=== PATIENT | male | born 1975 | race Caucasian/White ===

== ENCOUNTER 2017-12-27 11:02 | Outpatient (CLI) | payer OTHER | END 2017-12-27 11:12 | disposition home or self-care (01) | LOC: NUCLEAR 11:02 | DX: I73.89 Other specified peripheral vascular diseases (principal); I87.2 Venous insufficiency (chronic) (peripheral) ==

== ENCOUNTER 2018-01-01 13:15 | Outpatient (CLI) | payer OTHER | END 2018-01-01 13:33 | disposition home or self-care (01) | LOC: NUCLEAR 13:15 | DX: I73.89 Other specified peripheral vascular diseases (principal) ==

== ENCOUNTER → 2018-12-22 10:02 | Outpatient (CLI) | payer OTHER | END | disposition home or self-care (01) | LOC: LAB 10:02 | DX: E03.8 Other specified hypothyroidism (principal); D51.0 Vitamin B12 deficiency anemia due to intrinsic factor deficiency; D51.1 Vitamin B12 deficiency anemia due to selective vitamin B12 malabsorption with proteinuria; I10 Essential (primary) hypertension; D50.8 Other iron deficiency anemias; I80.222 Phlebitis and thrombophlebitis of left popliteal vein; I73.89 Other specified peripheral vascular diseases ==

== ENCOUNTER 2023-05-30 17:37 | Inpatient (IN) | payer OTHER ==
[~2023-05-30] VITALS: Ht 185.4 cm; Wt 81.6 kg
[2023-05-30] MEDS ORDERED: PLAVIX75 MG (17:42)
[2023-05-30 20:10] LABS: HEMATOCRIT 39.4 % (39.0-48.0); HEMOGLOBIN 13.5 g/dL (13-16.00); MEAN CELL VOLUME 88.3 fL (80.0-100.00); MEAN CORPUSCULAR HEMOGLOBIN 30.2 pg (27.00-32.0); MEAN CORPUSCULAR HGB CONC 34.2 g/dl (32.0-36.0); PLATELET COUNT 175 K/uL (150-450); RED BLOOD COUNT 4.47 M/uL (4.00-6.00); RED CELL DISTRIBUTION WIDTH 14.1 % (11.5-14.5)
[2023-05-30 20:22] LABS: INR 1.11; PARTIAL THROMBOPLASTIN TIME 25.9 SECONDS (22.0-34.0); PROTHROMBIN TIME 11.6 SECONDS (9.0-11.5)
[2023-05-30 20:27] LABS: ALBUMIN 3.1 gm/dL (3.4-5.0); BILIRUBIN TOTAL 0.76 mg/dL (0.3-1.2); BILIRUBIN,CONJUGATED 0.22 mg/dL (0.0-0.2); BILIRUBIN,UNCONJUGATED 0.54 mg/dL (0.0-0.6); CREATININE SERUM 1.03 mg/dL (0.70-1.30); GFR 77.08; GLOBULINA 3.8 G/DL (2.4-3.5); POTASSIUM 4.25 mEq/L (3.5-5.1); TOTAL PROTEIN 6.9 gm/dL (6.4-8.2)
[2023-05-30 20:29] LABS: PH,URINE 6.5 (5.0-8.0); URINE APPEARANCE Clear; URINE BILIRRUBIN Negative (NEGATIVE); URINE BLOOD Negative; URINE COLOR Yellow; URINE GLUCOSE Negative (NEGATIVE); URINE LEUKOCYTE Negative; URINE NITRATE Negative; URINE PROTEIN Negative (NEGATIVE)
[2023-05-30 20:35] LABS: URINE BACTERIA 1.2 uL (0.0-1933); URINE EPITHELIAL CELLS 0.7 uL (0.0-38.8); URINE RBC 1.1 uL (0.0-20.8); URINE WBC 0.9 uL (0.0-23.2)
[2023-05-31 00:27] LABS: INR 1.1; PARTIAL THROMBOPLASTIN TIME 27.1 SECONDS (22.0-34.0); PROTHROMBIN TIME 11.5 SECONDS (9.0-11.5)
[2023-05-31 02:31] LABS: ABG PH 7.426 (7.35-7.45); ABG pCO2 37.1 mmHg (35-45); BASE EXCESS 0 mmol/l; SaO2 97.4 %; Tco2 25.1 mmol/l; o2 28 %
[2023-05-31 02:32] LABS: allen test SATISFACTORY; puncture site RADIAL RIGHT
[2023-05-31 07:20] LABS: ALBUMIN 3.5 gm/dL (3.4-5.0); BILIRUBIN TOTAL 0.94 mg/dL (0.3-1.2); BILIRUBIN,CONJUGATED 0.28 mg/dL (0.0-0.2); BILIRUBIN,UNCONJUGATED 0.66 mg/dL (0.0-0.6); CHOL HDL RATIO 5.1 (0-5.0); TOTAL PROTEIN 7.2 gm/dL (6.4-8.2); TSH 3.14 uIU/mL (0.358-3.74)
[2023-06-01 08:13] LABS: HEMATOCRIT 40.7 % (39.0-48.0); HEMOGLOBIN 14.1 g/dL (13-16.00); MEAN CORPUSCULAR HEMOGLOBIN 30.5 pg (27.00-32.0); MEAN CORPUSCULAR HGB CONC 34.7 g/dl (32.0-36.0); PLATELET COUNT 179 K/uL (150-450); RED BLOOD COUNT 4.62 M/uL (4.00-6.00); RED CELL DISTRIBUTION WIDTH 14.1 % (11.5-14.5)
[2023-06-01 09:13] LABS: ALBUMIN 3.5 gm/dL (3.4-5.0); BILIRUBIN TOTAL 0.75 mg/dL (0.3-1.2); CALCIUM 9.1 mg/dL (8.5-10.1); CREATININE SERUM 0.94 mg/dL (0.70-1.30); GFR 85.66; GLOBULINA 3.5 G/DL (2.4-3.5); POTASSIUM 4.17 mEq/L (3.5-5.1)
[2023-06-04 05:07] LABS: HEMATOCRIT 41.9 % (39.0-48.0); HEMOGLOBIN 14.5 g/dL (13-16.00); MEAN CELL VOLUME 88.4 fL (80.0-100.00); MEAN CORPUSCULAR HEMOGLOBIN 30.6 pg (27.00-32.0); MEAN CORPUSCULAR HGB CONC 34.6 g/dl (32.0-36.0); PLATELET COUNT 188 K/uL (150-450); RED BLOOD COUNT 4.74 M/uL (4.00-6.00); RED CELL DISTRIBUTION WIDTH 13.9 % (11.5-14.5)
[2023-06-04 05:29] LABS: ALBUMIN 3.4 gm/dL (3.4-5.0); BILIRUBIN TOTAL 0.78 mg/dL (0.3-1.2); CALCIUM 9.2 mg/dL (8.5-10.1); CREATININE SERUM 0.87 mg/dL (0.70-1.30); GFR 93.66; GLOBULINA 3.5 G/DL (2.4-3.5); POTASSIUM 4.39 mEq/L (3.5-5.1); TOTAL PROTEIN 6.9 gm/dL (6.4-8.2)
[2023-06-04 12:12] LABS: ebv vca igg > 600.0 U/mL (0.0-17.9); hav igm Negative (Negative); hcv Non Reactive (Non Reactive); hep b c Negative (Negative); vca igm ab < 36.0 U/mL (0.0-35.9)
[2023-06-04 22:15] LABS: PLEURAL FLUID APPEARANCE TURBID; PLEURAL FLUID COLOR RED-BLOODY; POLYMORPHONUCLEAR 18 %
[2023-06-04 22:17] LABS: MONONUCLEAR 82 %
[2023-06-06 10:07] LABS: hiv 1 < 20 (.)
[2023-06-06 14:06] LABS: HEMATOCRIT 44.6 % (39.0-48.0); HEMOGLOBIN 15.2 g/dL (13-16.00); MEAN CELL VOLUME 90.1 fL (80.0-100.00); MEAN CORPUSCULAR HEMOGLOBIN 30.6 pg (27.00-32.0); PLATELET COUNT 211 K/uL (150-450); RED BLOOD COUNT 4.95 M/uL (4.00-6.00); RED CELL DISTRIBUTION WIDTH 13.9 % (11.5-14.5)
[2023-06-06 14:42] LABS: ALBUMIN 3.8 gm/dL (3.4-5.0); BILIRUBIN TOTAL 0.94 mg/dL (0.3-1.2); CALCIUM 9.9 mg/dL (8.5-10.1); CREATININE SERUM 0.94 mg/dL (0.70-1.30); GFR 85.66; GLOBULINA 3.9 G/DL (2.4-3.5); POTASSIUM 4.81 mEq/L (3.5-5.1); TOTAL PROTEIN 7.7 gm/dL (6.4-8.2)
[2023-06-09 05:07] LABS: HEMATOCRIT 39.5 % (39.0-48.0); HEMOGLOBIN 13.6 g/dL (13-16.00); MEAN CELL VOLUME 88.5 fL (80.0-100.00); MEAN CORPUSCULAR HEMOGLOBIN 30.5 pg (27.00-32.0); MEAN CORPUSCULAR HGB CONC 34.4 g/dl (32.0-36.0); PLATELET COUNT 215 K/uL (150-450); RED BLOOD COUNT 4.46 M/uL (4.00-6.00); RED CELL DISTRIBUTION WIDTH 13.9 % (11.5-14.5)
[2023-06-09 05:35] LABS: ALBUMIN 3.3 gm/dL (3.4-5.0); BILIRUBIN TOTAL 0.8 mg/dL (0.3-1.2); CALCIUM 8.9 mg/dL (8.5-10.1); CREATININE SERUM 0.93 mg/dL (0.70-1.30); GFR 86.72; GLOBULINA 3.5 G/DL (2.4-3.5); POTASSIUM 4.41 mEq/L (3.5-5.1); TOTAL PROTEIN 6.8 gm/dL (6.4-8.2)
== END 2023-06-10 17:20 | disposition home or self-care (01) | DRG 988 ==
LOC: ER 17:37 → MEDJ 23:36 → MEDI 05-31 05:58
PROVIDERS: General Practice; Internal Medicine; Radiology Vascular & Interventional Radiology; ADMIT Specialist; ATTEND Specialist
PROC: BW21ZZZ Computerized Tomography (CT Scan) of Abdomen and Pelvis (ICD-10-PCS; 2023-05-30)
PROC: 4A12X4Z Monitoring of Cardiac Electrical Activity, External Approach (ICD-10-PCS; 2023-05-31)
PROC: BW24YZZ Computerized Tomography (CT Scan) of Chest and Abdomen using Other Contrast (ICD-10-PCS; 2023-06-03)
PROC: 07B63ZX Excision of Left Axillary Lymphatic, Percutaneous Approach, Diagnostic (ICD-10-PCS; principal; 2023-06-04)
PROC: 0W993ZX Drainage of Right Pleural Cavity, Percutaneous Approach, Diagnostic (ICD-10-PCS; 2023-06-04)
DX: J90 Pleural effusion, not elsewhere classified (principal); C85.90 Non-Hodgkin lymphoma, unspecified, unspecified site; N17.9 Acute kidney failure, unspecified; R18.8 Other ascites; R59.1 Generalized enlarged lymph nodes; R16.1 Splenomegaly, not elsewhere classified

== ENCOUNTER 2023-06-12 10:27 | Outpatient (CLI) | payer OTHER ==
[~2023-06-12 10:27] MED LIST: PLAVIX75 MG
[2023-06-12 12:11] LABS: PH,URINE 5.5 (5.0-8.0); URINE APPEARANCE Clear; URINE BILIRRUBIN Negative (NEGATIVE); URINE BLOOD Negative; URINE COLOR Yellow; URINE GLUCOSE Negative (NEGATIVE); URINE LEUKOCYTE Negative; URINE NITRATE Negative; URINE PROTEIN Negative (NEGATIVE)
[2023-06-12 12:15] LABS: URINE EPITHELIAL CELLS 2.9 uL (0.0-38.8); URINE RBC 2.1 uL (0.0-20.8); URINE WBC 2.7 uL (0.0-23.2)
[2023-06-12 12:48] LABS: HEMATOCRIT 41.5 % (39.0-48.0); HEMOGLOBIN 14.1 g/dL (13-16.00); MEAN CELL VOLUME 88.1 fL (80.0-100.00); PLATELET COUNT 229 K/uL (150-450); RED BLOOD COUNT 4.71 M/uL (4.00-6.00); RED CELL DISTRIBUTION WIDTH 14.2 % (11.5-14.5)
[2023-06-12 13:01] LABS: INR 1.06; PARTIAL THROMBOPLASTIN TIME 27.5 SECONDS (22.0-34.0); PROTHROMBIN TIME 11.1 SECONDS (9.0-11.5)
[2023-06-12 13:05] LABS: ALBUMIN 3.6 gm/dL (3.4-5.0); BILIRUBIN TOTAL 1.15 mg/dL (0.3-1.2); CALCIUM 9.3 mg/dL (8.5-10.1); CREATININE SERUM 0.84 mg/dL (0.70-1.30); GFR 97.53; GLOBULINA 3.5 G/DL (2.4-3.5); POTASSIUM 4.58 mEq/L (3.5-5.1); TOTAL PROTEIN 7.1 gm/dL (6.4-8.2)
[2023-06-14] MEDS ORDERED: PENTOXIFYLLINE400 MG PO (11:16)
== END 2023-06-12 10:33 | disposition home or self-care (01) ==
LOC: LAB 10:27
PROVIDERS: ATTEND Specialist
DX: C85.90 Non-Hodgkin lymphoma, unspecified, unspecified site (principal)

== ENCOUNTER 2023-06-18 07:53 | Inpatient (IN) | payer OTHER ==
[~2023-06-18 07:53] MED LIST changes: +PENTOXIFYLLINE400 MG PO
[2023-06-18 18:40] LABS: HEMATOCRIT 35.5 % (39.0-48.0); HEMOGLOBIN 12.4 g/dL (13-16.00); MEAN CORPUSCULAR HGB CONC 34.8 g/dl (32.0-36.0); PLATELET COUNT 188 K/uL (150-450); RED BLOOD COUNT 3.99 M/uL (4.00-6.00); RED CELL DISTRIBUTION WIDTH 14.1 % (11.5-14.5)
[2023-06-18 18:42] LABS: PH,URINE 5.5 (5.0-8.0); URINE APPEARANCE Clear; URINE BILIRRUBIN Negative (NEGATIVE); URINE BLOOD Negative; URINE COLOR Yellow; URINE GLUCOSE Negative (NEGATIVE); URINE LEUKOCYTE Negative; URINE NITRATE Negative; URINE PROTEIN Negative (NEGATIVE); URINE UROBILINOGEN 0.2 E.U./dl
[2023-06-18 18:43] LABS: URINE WBC 2.4 uL (0.0-23.2)
[2023-06-18 18:54] LABS: URINE BACTERIA 3.7 uL (0.0-1933); URINE RBC 1.4 uL (0.0-20.8)
[2023-06-18 18:58] LABS: INR 1.12; PROTHROMBIN TIME 11.7 SECONDS (9.0-11.5)
[2023-06-18 19:03] LABS: BILIRUBIN TOTAL 0.95 mg/dL (0.3-1.2); CALCIUM 8.7 mg/dL (8.5-10.1); CREATININE SERUM 0.78 mg/dL (0.70-1.30); GFR 106.23; GLOBULINA 2.7 G/DL (2.4-3.5); POTASSIUM 4.58 mEq/L (3.5-5.1); TOTAL PROTEIN 5.7 gm/dL (6.4-8.2)
[2023-06-18 23:06] LABS: ABG PO2 84.2 mmHg (80-100); ABG pCO2 36.9 mmHg (35-45); BASE EXCESS 0.7 mmol/l; BICARBONATE 24.5 mmol/l (23-25); SaO2 96.7 %; Tco2 25.7 mmol/l
[2023-06-18 23:07] LABS: allen test SATISFACTORY; o2 24 %; puncture site RADIAL LEFT
[2023-06-19] MEDS ORDERED: PANTOPRAZOLE SO40 MG (09:10)
[2023-06-19] MEDS ORDERED: CELEBREX200MG (09:10)
== END 2023-06-20 14:06 | disposition home or self-care (01) | DRG 841 ==
LOC: CIR.AMB 07:53 → O/R 17:45 → SURH 18:11
PROVIDERS: General Practice; ADMIT Specialist; ATTEND Specialist
PROC: 0JHD3WZ Insertion of Totally Implantable Vascular Access Device into Right Upper Arm Subcutaneous Tissue and Fascia, Percutaneous Approach (ICD-10-PCS; 2023-06-18)
PROC: 3E0F7GC Introduction of Other Therapeutic Substance into Respiratory Tract, Via Natural or Artificial Opening (ICD-10-PCS; 2023-06-18)
PROC: 0W9B3ZZ Drainage of Left Pleural Cavity, Percutaneous Approach (ICD-10-PCS; principal; 2023-06-19)
DX: C85.90 Non-Hodgkin lymphoma, unspecified, unspecified site (principal); J90 Pleural effusion, not elsewhere classified

== ENCOUNTER 2023-06-26 07:42 | Outpatient (CLI) | payer OTHER ==
[~2023-06-26 07:42] MED LIST changes: +CELEBREX200MG; +PANTOPRAZOLE SO40 MG
== END 2023-06-26 07:43 | disposition home or self-care (01) ==
LOC: NUCLEAR 07:42
PROVIDERS: ATTEND Internal Medicine Hematology & Oncology
DX: C85.13 Unspecified B-cell lymphoma, intra-abdominal lymph nodes (principal); C85.16 Unspecified B-cell lymphoma, intrapelvic lymph nodes; C85.12 Unspecified B-cell lymphoma, intrathoracic lymph nodes; C85.14 Unspecified B-cell lymphoma, lymph nodes of axilla and upper limb; C85.11 Unspecified B-cell lymphoma, lymph nodes of head, face, and neck; C85.15 Unspecified B-cell lymphoma, lymph nodes of inguinal region and lower limb; I80.222 Phlebitis and thrombophlebitis of left popliteal vein

== ENCOUNTER → 2023-07-18 11:16 | Outpatient (CLI) | payer OTHER ==
[2023-07-18 12:30] LABS: HEMATOCRIT 36.9 % (39.0-48.0); HEMOGLOBIN 12.8 g/dL (13-16.00); MEAN CELL VOLUME 89.5 fL (80.0-100.00); MEAN CORPUSCULAR HGB CONC 34.6 g/dl (32.0-36.0); PLATELET COUNT 193 K/uL (150-450); RED BLOOD COUNT 4.12 M/uL (4.00-6.00); RED CELL DISTRIBUTION WIDTH 14.1 % (11.5-14.5)
[2023-07-18 12:39] LABS: ALBUMIN 3.7 gm/dL (3.4-5.0); BILIRUBIN TOTAL 0.86 mg/dL (0.3-1.2); CALCIUM 8.9 mg/dL (8.5-10.1); CREATININE SERUM 0.74 mg/dL (0.70-1.30); GFR 112.89; GLOBULINA 2.9 G/DL (2.4-3.5); POTASSIUM 4.11 mEq/L (3.5-5.1); TOTAL PROTEIN 6.6 gm/dL (6.4-8.2); TSH 2.08 uIU/mL (0.358-3.74)
[2023-07-18 13:03] LABS: FOLIC ACID 12.32 ng/ml (4.78-20)
== END | disposition home or self-care (01) ==
LOC: LAB 11:16
PROVIDERS: ATTEND Internal Medicine Hematology & Oncology
DX: D50.8 Other iron deficiency anemias (principal); I10 Essential (primary) hypertension; R74.02 Elevation of levels of lactic acid dehydrogenase [LDH]; K76.89 Other specified diseases of liver; E03.8 Other specified hypothyroidism; E06.3 Autoimmune thyroiditis

== ENCOUNTER 2023-07-24 08:10 | Outpatient (CLI) | payer OTHER | END 2023-07-24 08:12 | disposition home or self-care (01) | LOC: NUCLEAR 08:10 | PROVIDERS: ATTEND Internal Medicine Hematology & Oncology | DX: I73.9 Peripheral vascular disease, unspecified (principal); I80.222 Phlebitis and thrombophlebitis of left popliteal vein; C85.13 Unspecified B-cell lymphoma, intra-abdominal lymph nodes; C85.16 Unspecified B-cell lymphoma, intrapelvic lymph nodes; C85.12 Unspecified B-cell lymphoma, intrathoracic lymph nodes; C85.14 Unspecified B-cell lymphoma, lymph nodes of axilla and upper limb; C85.11 Unspecified B-cell lymphoma, lymph nodes of head, face, and neck; C85.15 Unspecified B-cell lymphoma, lymph nodes of inguinal region and lower limb ==

== ENCOUNTER 2023-07-24 16:14 | Outpatient (CLI) | payer OTHER | END 2023-07-24 16:21 | disposition home or self-care (01) | LOC: LAB 16:14 | PROVIDERS: ATTEND Internal Medicine Hematology & Oncology | DX: J06.9 Acute upper respiratory infection, unspecified (principal) ==

== ENCOUNTER → 2023-08-08 13:03 | Outpatient (CLI) | payer OTHER ==
[2023-08-08 13:33] LABS: HEMATOCRIT 36.4 % (39.0-48.0); HEMOGLOBIN 12.5 g/dL (13-16.00); MEAN CELL VOLUME 86.9 fL (80.0-100.00); MEAN CORPUSCULAR HEMOGLOBIN 29.9 pg (27.00-32.0); MEAN CORPUSCULAR HGB CONC 34.4 g/dl (32.0-36.0); PLATELET COUNT 174 K/uL (150-450); RED BLOOD COUNT 4.19 M/uL (4.00-6.00); RED CELL DISTRIBUTION WIDTH 14.1 % (11.5-14.5)
[2023-08-08 13:53] LABS: ALBUMIN 3.5 gm/dL (3.4-5.0); BILIRUBIN TOTAL 0.65 mg/dL (0.3-1.2); CALCIUM 9.1 mg/dL (8.5-10.1); CREATININE SERUM 0.62 mg/dL (0.70-1.30); GFR 138.46; POTASSIUM 4.1 mEq/L (3.5-5.1); TOTAL PROTEIN 6.5 gm/dL (6.4-8.2)
== END | disposition home or self-care (01) ==
LOC: LAB 13:03
PROVIDERS: ATTEND Internal Medicine Hematology & Oncology
DX: D50.8 Other iron deficiency anemias (principal); I10 Essential (primary) hypertension; R74.02 Elevation of levels of lactic acid dehydrogenase [LDH]; K76.89 Other specified diseases of liver; C85.13 Unspecified B-cell lymphoma, intra-abdominal lymph nodes; C85.16 Unspecified B-cell lymphoma, intrapelvic lymph nodes; C85.14 Unspecified B-cell lymphoma, lymph nodes of axilla and upper limb; C85.11 Unspecified B-cell lymphoma, lymph nodes of head, face, and neck; C85.15 Unspecified B-cell lymphoma, lymph nodes of inguinal region and lower limb; I73.9 Peripheral vascular disease, unspecified; I80.222 Phlebitis and thrombophlebitis of left popliteal vein

== ENCOUNTER 2023-08-09 14:00 | Outpatient (CLI) | payer OTHER | END 2023-08-09 14:01 | disposition home or self-care (01) | LOC: LAB 14:00 | PROVIDERS: ATTEND Internal Medicine Hematology & Oncology | DX: J12.1 Respiratory syncytial virus pneumonia (principal); C85.13 Unspecified B-cell lymphoma, intra-abdominal lymph nodes; C85.16 Unspecified B-cell lymphoma, intrapelvic lymph nodes; C85.14 Unspecified B-cell lymphoma, lymph nodes of axilla and upper limb; C85.11 Unspecified B-cell lymphoma, lymph nodes of head, face, and neck; C85.15 Unspecified B-cell lymphoma, lymph nodes of inguinal region and lower limb; I73.9 Peripheral vascular disease, unspecified; I80.222 Phlebitis and thrombophlebitis of left popliteal vein ==

== ENCOUNTER 2023-08-14 10:25 | Outpatient (CLI) | payer OTHER ==
[2023-08-14 11:16] LABS: HEMATOCRIT 40.4 % (39.0-48.0); MEAN CELL VOLUME 88.1 fL (80.0-100.00); MEAN CORPUSCULAR HEMOGLOBIN 30.6 pg (27.00-32.0); MEAN CORPUSCULAR HGB CONC 34.7 g/dl (32.0-36.0); PLATELET COUNT 306 K/uL (150-450); RED BLOOD COUNT 4.59 M/uL (4.00-6.00); RED CELL DISTRIBUTION WIDTH 13.8 % (11.5-14.5)
[2023-08-14 11:52] LABS: ALBUMIN 3.6 gm/dL (3.4-5.0); BILIRUBIN TOTAL 0.77 mg/dL (0.3-1.2); CALCIUM 9.4 mg/dL (8.5-10.1); CREATININE SERUM 0.73 mg/dL (0.70-1.30); GFR 114.68; POTASSIUM 4.8 mEq/L (3.5-5.1); TOTAL PROTEIN 6.6 gm/dL (6.4-8.2)
== END 2023-08-14 10:39 | disposition home or self-care (01) ==
LOC: LAB 10:25
PROVIDERS: ATTEND Internal Medicine Hematology & Oncology
DX: D50.8 Other iron deficiency anemias (principal); C85.13 Unspecified B-cell lymphoma, intra-abdominal lymph nodes; C85.16 Unspecified B-cell lymphoma, intrapelvic lymph nodes; I10 Essential (primary) hypertension; R74.02 Elevation of levels of lactic acid dehydrogenase [LDH]; E73.9 Lactose intolerance, unspecified; I80.222 Phlebitis and thrombophlebitis of left popliteal vein

== ENCOUNTER 2023-09-04 10:54 | Outpatient (CLI) | payer OTHER ==
[2023-09-04 12:03] LABS: HEMATOCRIT 38.4 % (39.0-48.0); HEMOGLOBIN 13.2 g/dL (13-16.00); MEAN CELL VOLUME 86.8 fL (80.0-100.00); MEAN CORPUSCULAR HEMOGLOBIN 29.8 pg (27.00-32.0); MEAN CORPUSCULAR HGB CONC 34.3 g/dl (32.0-36.0); PLATELET COUNT 208 K/uL (150-450); RED BLOOD COUNT 4.42 M/uL (4.00-6.00); RED CELL DISTRIBUTION WIDTH 14.2 % (11.5-14.5)
[2023-09-04 12:20] LABS: ALBUMIN 3.7 gm/dL (3.4-5.0); BILIRUBIN TOTAL 0.69 mg/dL (0.3-1.2); CALCIUM 9.4 mg/dL (8.5-10.1); CREATININE SERUM 0.7 mg/dL (0.70-1.30); GFR 120.36; GLOBULINA 2.7 G/DL (2.4-3.5); POTASSIUM 4.27 mEq/L (3.5-5.1); TOTAL PROTEIN 6.4 gm/dL (6.4-8.2)
== END 2023-09-04 10:55 | disposition home or self-care (01) ==
LOC: LAB 10:54
PROVIDERS: ATTEND Internal Medicine Hematology & Oncology
DX: D50.8 Other iron deficiency anemias (principal); I10 Essential (primary) hypertension; R74.02 Elevation of levels of lactic acid dehydrogenase [LDH]; K76.89 Other specified diseases of liver; C85.13 Unspecified B-cell lymphoma, intra-abdominal lymph nodes; C85.16 Unspecified B-cell lymphoma, intrapelvic lymph nodes; C85.12 Unspecified B-cell lymphoma, intrathoracic lymph nodes; C85.14 Unspecified B-cell lymphoma, lymph nodes of axilla and upper limb; C85.11 Unspecified B-cell lymphoma, lymph nodes of head, face, and neck; C85.15 Unspecified B-cell lymphoma, lymph nodes of inguinal region and lower limb; I73.9 Peripheral vascular disease, unspecified; I80.222 Phlebitis and thrombophlebitis of left popliteal vein

== ENCOUNTER 2023-09-11 09:53 | Outpatient (CLI) | payer OTHER ==
[2023-09-11 10:25] LABS: HEMATOCRIT 39.1 % (39.0-48.0); HEMOGLOBIN 13.3 g/dL (13-16.00); MEAN CELL VOLUME 88.3 fL (80.0-100.00); PLATELET COUNT 259 K/uL (150-450); RED BLOOD COUNT 4.43 M/uL (4.00-6.00); RED CELL DISTRIBUTION WIDTH 14.5 % (11.5-14.5)
== END 2023-09-11 09:54 | disposition home or self-care (01) ==
LOC: LAB 09:53
PROVIDERS: ATTEND Internal Medicine Hematology & Oncology
DX: D50.8 Other iron deficiency anemias (principal)

== ENCOUNTER → 2023-10-02 08:27 | Outpatient (CLI) | payer OTHER ==
[2023-10-02 09:46] LABS: HEMATOCRIT 36.2 % (39.0-48.0); HEMOGLOBIN 12.7 g/dL (13-16.00); MEAN CELL VOLUME 86.4 fL (80.0-100.00); MEAN CORPUSCULAR HEMOGLOBIN 30.4 pg (27.00-32.0); MEAN CORPUSCULAR HGB CONC 35.2 g/dl (32.0-36.0); PLATELET COUNT 252 K/uL (150-450); RED BLOOD COUNT 4.19 M/uL (4.00-6.00); RED CELL DISTRIBUTION WIDTH 13.7 % (11.5-14.5)
[2023-10-02 10:06] LABS: ALBUMIN 3.9 gm/dL (3.4-5.0); BILIRUBIN TOTAL 0.67 mg/dL (0.3-1.2); CALCIUM 9.5 mg/dL (8.5-10.1); CREATININE SERUM 0.65 mg/dL (0.70-1.30); GFR 130.56; GLOBULINA 2.8 G/DL (2.4-3.5); POTASSIUM 4.45 mEq/L (3.5-5.1); TOTAL PROTEIN 6.7 gm/dL (6.4-8.2)
== END | disposition home or self-care (01) ==
LOC: RAD 08:27
PROVIDERS: ATTEND Internal Medicine Hematology & Oncology
DX: C85.13 Unspecified B-cell lymphoma, intra-abdominal lymph nodes (principal); C85.16 Unspecified B-cell lymphoma, intrapelvic lymph nodes; C85.12 Unspecified B-cell lymphoma, intrathoracic lymph nodes; C85.14 Unspecified B-cell lymphoma, lymph nodes of axilla and upper limb; C85.11 Unspecified B-cell lymphoma, lymph nodes of head, face, and neck; C85.15 Unspecified B-cell lymphoma, lymph nodes of inguinal region and lower limb; I73.9 Peripheral vascular disease, unspecified; I80.222 Phlebitis and thrombophlebitis of left popliteal vein

== ENCOUNTER 2023-10-23 10:15 | Outpatient (CLI) | payer OTHER ==
[2023-10-23 11:26] LABS: HEMATOCRIT 36.8 % (39.0-48.0); HEMOGLOBIN 12.7 g/dL (13-16.00); MEAN CELL VOLUME 84.7 fL (80.0-100.00); MEAN CORPUSCULAR HEMOGLOBIN 29.1 pg (27.00-32.0); MEAN CORPUSCULAR HGB CONC 34.4 g/dl (32.0-36.0); PLATELET COUNT 291 K/uL (150-450); RED BLOOD COUNT 4.34 M/uL (4.00-6.00); RED CELL DISTRIBUTION WIDTH 14.4 % (11.5-14.5)
[2023-10-23 12:10] LABS: ALBUMIN 3.6 gm/dL (3.4-5.0); BILIRUBIN TOTAL 0.49 mg/dL (0.3-1.2); CALCIUM 9.5 mg/dL (8.5-10.1); CREATININE SERUM 0.65 mg/dL (0.70-1.30); GFR 130.56; GLOBULINA 2.9 G/DL (2.4-3.5); POTASSIUM 4.74 mEq/L (3.5-5.1); TOTAL PROTEIN 6.5 gm/dL (6.4-8.2)
== END 2023-10-23 10:16 | disposition home or self-care (01) ==
LOC: LAB 10:15
PROVIDERS: ATTEND Internal Medicine Hematology & Oncology
DX: C85.13 Unspecified B-cell lymphoma, intra-abdominal lymph nodes (principal); C85.16 Unspecified B-cell lymphoma, intrapelvic lymph nodes; C85.12 Unspecified B-cell lymphoma, intrathoracic lymph nodes; C85.14 Unspecified B-cell lymphoma, lymph nodes of axilla and upper limb; C85.11 Unspecified B-cell lymphoma, lymph nodes of head, face, and neck; C85.15 Unspecified B-cell lymphoma, lymph nodes of inguinal region and lower limb; I73.9 Peripheral vascular disease, unspecified; I80.222 Phlebitis and thrombophlebitis of left popliteal vein

== ENCOUNTER 2024-02-24 11:24 | Outpatient (CLI) | payer OTHER ==
[2024-02-24 11:52] LABS: HEMATOCRIT 43.1 % (39.0-48.0); MEAN CELL VOLUME 86.7 fL (80.0-100.00); MEAN CORPUSCULAR HEMOGLOBIN 30.2 pg (27.00-32.0); MEAN CORPUSCULAR HGB CONC 34.9 g/dl (32.0-36.0); PLATELET COUNT 265 K/uL (150-450); RED BLOOD COUNT 4.97 M/uL (4.00-6.00)
[2024-02-24 12:30] LABS: BILIRUBIN TOTAL 0.82 mg/dL (0.3-1.2); CALCIUM 9.3 mg/dL (8.5-10.1); CREATININE SERUM 0.79 mg/dL (0.70-1.30); GFR 104.25; GLOBULINA 3.1 G/DL (2.4-3.5); POTASSIUM 4.13 mEq/L (3.5-5.1); TOTAL PROTEIN 7.1 gm/dL (6.4-8.2)
== END 2024-02-24 11:25 | disposition home or self-care (01) ==
LOC: LAB 11:24
PROVIDERS: ATTEND Internal Medicine Hematology & Oncology
DX: D50.8 Other iron deficiency anemias (principal); I10 Essential (primary) hypertension; R74.02 Elevation of levels of lactic acid dehydrogenase [LDH]; K76.89 Other specified diseases of liver; C85.13 Unspecified B-cell lymphoma, intra-abdominal lymph nodes; C85.12 Unspecified B-cell lymphoma, intrathoracic lymph nodes; C85.16 Unspecified B-cell lymphoma, intrapelvic lymph nodes; C85.14 Unspecified B-cell lymphoma, lymph nodes of axilla and upper limb; C85.11 Unspecified B-cell lymphoma, lymph nodes of head, face, and neck; C85.15 Unspecified B-cell lymphoma, lymph nodes of inguinal region and lower limb; I73.9 Peripheral vascular disease, unspecified; I80.222 Phlebitis and thrombophlebitis of left popliteal vein

== ENCOUNTER 2024-04-20 11:50 | Outpatient (CLI) | payer OTHER ==
[2024-04-20 13:08] LABS: HEMOGLOBIN 14.1 g/dL (13-16.00); MEAN CELL VOLUME 86.7 fL (80.0-100.00); MEAN CORPUSCULAR HEMOGLOBIN 29.8 pg (27.00-32.0); MEAN CORPUSCULAR HGB CONC 34.4 g/dl (32.0-36.0); PLATELET COUNT 197 K/uL (150-450); RED BLOOD COUNT 4.73 M/uL (4.00-6.00); RED CELL DISTRIBUTION WIDTH 14.2 % (11.5-14.5)
[2024-04-20 14:27] LABS: FOLIC ACID > 20.00 ng/ml (4.78-20)
[2024-04-20 14:30] LABS: % SATURACION 32.8 % (20-50); BILIRUBIN TOTAL 1.03 mg/dL (0.3-1.2); CHOL HDL RATIO 2.3 (0-5.0); CREATININE SERUM 0.74 mg/dL (0.70-1.30); FERRITIN 73.4 NG/ML (26-388); GFR 112.42; GLOBULINA 2.7 G/DL (2.4-3.5); POTASSIUM 4.15 mEq/L (3.5-5.1); PROSTATIC SPECIFIC ANTIGEN 0.419 NG/ML (0.010-4.00); T4 FREE 0.94 NG/ML (0.76-1.46); TOTAL PROTEIN 6.7 gm/dL (6.4-8.2); TSH 2.09 uIU/mL (0.358-3.74)
== END 2024-04-20 12:05 | disposition home or self-care (01) ==
LOC: LAB 11:50
PROVIDERS: ATTEND Internal Medicine Hematology & Oncology
DX: C85.13 Unspecified B-cell lymphoma, intra-abdominal lymph nodes (principal); C85.16 Unspecified B-cell lymphoma, intrapelvic lymph nodes; C85.14 Unspecified B-cell lymphoma, lymph nodes of axilla and upper limb; C85.11 Unspecified B-cell lymphoma, lymph nodes of head, face, and neck; C85.15 Unspecified B-cell lymphoma, lymph nodes of inguinal region and lower limb; I73.9 Peripheral vascular disease, unspecified; I80.222 Phlebitis and thrombophlebitis of left popliteal vein; D50.8 Other iron deficiency anemias; I10 Essential (primary) hypertension; R74.02 Elevation of levels of lactic acid dehydrogenase [LDH]; K76.89 Other specified diseases of liver; E78.2 Mixed hyperlipidemia; E03.8 Other specified hypothyroidism; R97.0 Elevated carcinoembryonic antigen [CEA]

== ENCOUNTER → 2024-06-08 07:52 | Outpatient (CLI) | payer OTHER ==
[2024-06-08 08:22] LABS: HEMOGLOBIN 14.8 g/dL (13-16.00); MEAN CELL VOLUME 89.5 fL (80.0-100.00); MEAN CORPUSCULAR HEMOGLOBIN 30.8 pg (27.00-32.0); MEAN CORPUSCULAR HGB CONC 34.4 g/dl (32.0-36.0); PLATELET COUNT 191 K/uL (150-450); RED CELL DISTRIBUTION WIDTH 13.6 % (11.5-14.5)
[2024-06-08 09:23] LABS: ALBUMIN 3.9 gm/dL (3.4-5.0); BILIRUBIN TOTAL 0.4 mg/dL (0.3-1.2); CALCIUM 8.9 mg/dL (8.5-10.1); CREATININE SERUM 1.06 mg/dL (0.70-1.30); GFR 74.25; GLOBULINA 2.8 G/DL (2.4-3.5); POTASSIUM 4.91 mEq/L (3.5-5.1); TOTAL PROTEIN 6.7 gm/dL (6.4-8.2)
[2024-06-08 12:20] LABS: FOLIC ACID 10.07 ng/ml (4.78-20)
== END | disposition home or self-care (01) ==
LOC: LAB 07:52
PROVIDERS: ATTEND Internal Medicine Hematology & Oncology
DX: C85.13 Unspecified B-cell lymphoma, intra-abdominal lymph nodes (principal); C85.16 Unspecified B-cell lymphoma, intrapelvic lymph nodes; C85.12 Unspecified B-cell lymphoma, intrathoracic lymph nodes; C85.14 Unspecified B-cell lymphoma, lymph nodes of axilla and upper limb; C85.11 Unspecified B-cell lymphoma, lymph nodes of head, face, and neck; I73.9 Peripheral vascular disease, unspecified; I80.222 Phlebitis and thrombophlebitis of left popliteal vein; I10 Essential (primary) hypertension; R74.02 Elevation of levels of lactic acid dehydrogenase [LDH]; D50.8 Other iron deficiency anemias; K76.89 Other specified diseases of liver; D51.8 Other vitamin B12 deficiency anemias

== ENCOUNTER 2024-07-27 09:16 | Outpatient (CLI) | payer OTHER ==
[2024-07-27 09:55] LABS: HEMATOCRIT 42.6 % (39.0-48.0); HEMOGLOBIN 14.7 g/dL (13-16.00); MEAN CELL VOLUME 89.7 fL (80.0-100.00); MEAN CORPUSCULAR HGB CONC 34.5 g/dl (32.0-36.0); PLATELET COUNT 173 K/uL (150-450); RED BLOOD COUNT 4.75 M/uL (4.00-6.00); RED CELL DISTRIBUTION WIDTH 12.8 % (11.5-14.5)
[2024-07-27 11:10] LABS: ALBUMIN 3.9 gm/dL (3.4-5.0); BILIRUBIN TOTAL 1.01 mg/dL (0.3-1.2); CALCIUM 9.3 mg/dL (8.5-10.1); CREATININE SERUM 0.81 mg/dL (0.70-1.30); GFR 101.28; GLOBULINA 3.2 G/DL (2.4-3.5); POTASSIUM 4.38 mEq/L (3.5-5.1); PROSTATIC SPECIFIC ANTIGEN 0.369 NG/ML (0.010-4.00); T4 FREE 1.11 NG/ML (0.76-1.46); TOTAL PROTEIN 7.1 gm/dL (6.4-8.2); TSH 1.84 uIU/mL (0.358-3.74)
[2024-07-27 12:46] LABS: FOLIC ACID > 20.00 ng/ml (4.78-20)
== END 2024-07-27 09:18 | disposition home or self-care (01) ==
LOC: LAB 09:16
PROVIDERS: ATTEND Internal Medicine Hematology & Oncology
DX: D50.8 Other iron deficiency anemias (principal); I10 Essential (primary) hypertension; R74.02 Elevation of levels of lactic acid dehydrogenase [LDH]; K76.89 Other specified diseases of liver; D51.8 Other vitamin B12 deficiency anemias; E03.8 Other specified hypothyroidism; R97.0 Elevated carcinoembryonic antigen [CEA]; R97.8 Other abnormal tumor markers; R97.20 Elevated prostate specific antigen [PSA]; C85.13 Unspecified B-cell lymphoma, intra-abdominal lymph nodes; C85.16 Unspecified B-cell lymphoma, intrapelvic lymph nodes; C85.12 Unspecified B-cell lymphoma, intrathoracic lymph nodes; C85.14 Unspecified B-cell lymphoma, lymph nodes of axilla and upper limb; C85.11 Unspecified B-cell lymphoma, lymph nodes of head, face, and neck; C85.15 Unspecified B-cell lymphoma, lymph nodes of inguinal region and lower limb; I73.9 Peripheral vascular disease, unspecified; I80.222 Phlebitis and thrombophlebitis of left popliteal vein

== ENCOUNTER 2024-09-28 06:04 | Outpatient (CLI) | payer OTHER ==
[2024-09-28 07:10] LABS: URINE APPEARANCE Clear; URINE BILIRRUBIN Negative (NEGATIVE); URINE BLOOD Negative; URINE COLOR Yellow; URINE GLUCOSE Negative (NEGATIVE); URINE KETONE Negative (NEGATIVE); URINE LEUKOCYTE Negative; URINE NITRATE Negative; URINE PROTEIN Negative (NEGATIVE); URINE UROBILINOGEN 0.2 E.U./dl
[2024-09-28 07:11] LABS: URINE WBC 1.8 uL (0.0-23.2)
[2024-09-28 07:18] LABS: URINE BACTERIA 2.4 uL (0.0-1933); URINE EPITHELIAL CELLS 0.6 uL (0.0-38.8)
[2024-09-28 07:33] LABS: HEMATOCRIT 43.2 % (39.0-48.0); HEMOGLOBIN 15.3 g/dL (13-16.00); MEAN CELL VOLUME 89.1 fL (80.0-100.00); MEAN CORPUSCULAR HEMOGLOBIN 31.6 pg (27.00-32.0); MEAN CORPUSCULAR HGB CONC 35.5 g/dl (32.0-36.0); PLATELET COUNT 191 K/uL (150-450); RED BLOOD COUNT 4.85 M/uL (4.00-6.00); RED CELL DISTRIBUTION WIDTH 13.6 % (11.5-14.5)
[2024-09-28 08:34] LABS: ALBUMIN 3.9 gm/dL (3.4-5.0); BILIRUBIN TOTAL 0.81 mg/dL (0.3-1.2); CALCIUM 8.9 mg/dL (8.5-10.1); CREATININE SERUM 0.86 mg/dL (0.70-1.30); GFR 94.13; GLOBULINA 2.9 G/DL (2.4-3.5); POTASSIUM 4.04 mEq/L (3.5-5.1); TOTAL PROTEIN 6.8 gm/dL (6.4-8.2)
== END 2024-09-28 06:15 | disposition home or self-care (01) ==
LOC: LAB 06:04
PROVIDERS: ATTEND Internal Medicine Cardiovascular Disease
DX: E78.2 Mixed hyperlipidemia (principal); I10 Essential (primary) hypertension; C85.13 Unspecified B-cell lymphoma, intra-abdominal lymph nodes; D50.8 Other iron deficiency anemias; R74.02 Elevation of levels of lactic acid dehydrogenase [LDH]; K76.89 Other specified diseases of liver; C85.16 Unspecified B-cell lymphoma, intrapelvic lymph nodes; C85.12 Unspecified B-cell lymphoma, intrathoracic lymph nodes; C85.14 Unspecified B-cell lymphoma, lymph nodes of axilla and upper limb; C85.11 Unspecified B-cell lymphoma, lymph nodes of head, face, and neck; C85.15 Unspecified B-cell lymphoma, lymph nodes of inguinal region and lower limb; I73.9 Peripheral vascular disease, unspecified; I80.222 Phlebitis and thrombophlebitis of left popliteal vein

== ENCOUNTER → 2024-11-23 10:23 | Outpatient (CLI) | payer OTHER ==
[2024-11-23 11:26] LABS: BASO % 0.3 % (0.1-1.2); EOS # 0.11 (0.04-0.54); EOS % 1.8 % (0.7-7.0); HEMATOCRIT 41.4 % (40.1-51.0); HEMOGLOBIN 14.6 g/dL (13.7-17.5); LYMPH # 1.27 (1.18-3.74); LYMPH % 20.9 % (19.3-53.1); MEAN CORPUSCULAR HEMOGLOBIN 30.6 pg (25.6-32.2); MONO # 0.57 (0.24-0.82); MONO % 9.4 % (4.7-12.5); NEUT # 4.08 (1.56-6.13); NEUT % 67.3 % (34.0-71.1); PLATELET COUNT 203 K/uL (163-369); RED BLOOD COUNT 4.77 M/uL (4.63-6.08); RED CELL DISTRIBUTION WIDTH 12.3 % (11.6-14.4)
[2024-11-23 12:21] LABS: BILIRUBIN TOTAL 0.98 mg/dL (0.3-1.2); CALCIUM 8.6 mg/dL (8.5-10.1); CREATININE SERUM 0.74 mg/dL (0.70-1.30); GFR 111.95; GLOBULINA 2.8 G/DL (2.4-3.5); POTASSIUM 4.08 mEq/L (3.5-5.1); TOTAL PROTEIN 6.8 gm/dL (6.4-8.2)
== END | disposition home or self-care (01) ==
LOC: LAB 10:23
PROVIDERS: ATTEND Internal Medicine Hematology & Oncology
DX: C73 Malignant neoplasm of thyroid gland (principal); C85.13 Unspecified B-cell lymphoma, intra-abdominal lymph nodes; C85.16 Unspecified B-cell lymphoma, intrapelvic lymph nodes; C85.12 Unspecified B-cell lymphoma, intrathoracic lymph nodes; C85.14 Unspecified B-cell lymphoma, lymph nodes of axilla and upper limb; C85.11 Unspecified B-cell lymphoma, lymph nodes of head, face, and neck; C85.15 Unspecified B-cell lymphoma, lymph nodes of inguinal region and lower limb; I73.9 Peripheral vascular disease, unspecified; I80.222 Phlebitis and thrombophlebitis of left popliteal vein; D50.8 Other iron deficiency anemias; I10 Essential (primary) hypertension; R74.02 Elevation of levels of lactic acid dehydrogenase [LDH]; K76.89 Other specified diseases of liver

== ENCOUNTER 2025-01-04 07:29 | Outpatient (CLI) | payer OTHER | END 2025-01-04 07:30 | disposition home or self-care (01) | LOC: NUCLEAR 07:29 | PROVIDERS: ATTEND Internal Medicine Hematology & Oncology | DX: C85.13 Unspecified B-cell lymphoma, intra-abdominal lymph nodes (principal); C85.12 Unspecified B-cell lymphoma, intrathoracic lymph nodes; C85.14 Unspecified B-cell lymphoma, lymph nodes of axilla and upper limb; C85.15 Unspecified B-cell lymphoma, lymph nodes of inguinal region and lower limb; C85.11 Unspecified B-cell lymphoma, lymph nodes of head, face, and neck ==

== ENCOUNTER 2025-01-05 08:01 | Outpatient (CLI) | payer OTHER ==
[2025-01-05 08:40] LABS: BASO % 0.2 % (0.1-1.2); HEMATOCRIT 41.7 % (40.1-51.0); HEMOGLOBIN 14.7 g/dL (13.7-17.5); LYMPH # 0.96 (1.18-3.74); LYMPH % 18.9 % (19.3-53.1); MEAN CORPUSCULAR HEMOGLOBIN 31.2 pg (25.6-32.2); MONO # 0.48 (0.24-0.82); MONO % 9.4 % (4.7-12.5); NEUT # 3.53 (1.56-6.13); NEUT % 69.5 % (34.0-71.1); PLATELET COUNT 182 K/uL (163-369); RED BLOOD COUNT 4.71 M/uL (4.63-6.08); RED CELL DISTRIBUTION WIDTH 12.1 % (11.6-14.4)
[2025-01-05 09:16] LABS: BILIRUBIN TOTAL 0.79 mg/dL (0.3-1.2); CALCIUM 9.4 mg/dL (8.5-10.1); CREATININE SERUM 0.84 mg/dL (0.70-1.30); GFR 96.72; GLOBULINA 2.7 G/DL (2.4-3.5); POTASSIUM 4.43 mEq/L (3.5-5.1); TOTAL PROTEIN 6.7 gm/dL (6.4-8.2)
[2025-01-05 10:10] LABS: FOLIC ACID > 20.00 ng/ml (4.78-20)
== END 2025-01-05 11:21 | disposition home or self-care (01) ==
LOC: LAB 08:01
PROVIDERS: ATTEND Internal Medicine Hematology & Oncology
DX: C85.13 Unspecified B-cell lymphoma, intra-abdominal lymph nodes (principal); C85.16 Unspecified B-cell lymphoma, intrapelvic lymph nodes; C85.12 Unspecified B-cell lymphoma, intrathoracic lymph nodes; C85.14 Unspecified B-cell lymphoma, lymph nodes of axilla and upper limb; C85.11 Unspecified B-cell lymphoma, lymph nodes of head, face, and neck; C85.15 Unspecified B-cell lymphoma, lymph nodes of inguinal region and lower limb; I73.9 Peripheral vascular disease, unspecified; I80.222 Phlebitis and thrombophlebitis of left popliteal vein; L97.329 Non-pressure chronic ulcer of left ankle with unspecified severity; D50.8 Other iron deficiency anemias; I10 Essential (primary) hypertension; R74.02 Elevation of levels of lactic acid dehydrogenase [LDH]; K76.89 Other specified diseases of liver; D51.8 Other vitamin B12 deficiency anemias

== ENCOUNTER 2025-01-29 08:57 | Outpatient (CLI) | payer OTHER | END 2025-01-29 08:58 | disposition home or self-care (01) | LOC: NUCLEAR 08:57 | PROVIDERS: ATTEND Internal Medicine Hematology & Oncology | DX: I73.9 Peripheral vascular disease, unspecified (principal); I80.222 Phlebitis and thrombophlebitis of left popliteal vein ==

== ENCOUNTER 2025-01-29 10:17 | Outpatient (CLI) | payer OTHER | END 2025-01-29 10:21 | disposition home or self-care (01) | LOC: SONOGRAMA 10:17 | PROVIDERS: ATTEND Internal Medicine Hematology & Oncology | DX: E04.2 Nontoxic multinodular goiter (principal) ==

== ENCOUNTER 2025-02-03 08:14 | Outpatient (CLI) | payer OTHER | END 2025-02-03 08:15 | disposition home or self-care (01) | LOC: NUCLEAR 08:14 | PROVIDERS: ATTEND Internal Medicine Hematology & Oncology | DX: I70.213 Atherosclerosis of native arteries of extremities with intermittent claudication, bilateral legs (principal) ==

== ENCOUNTER 2025-02-04 09:11 | Outpatient (CLI) | payer OTHER | END 2025-02-04 09:14 | disposition home or self-care (01) | LOC: SONOGRAMA 09:11 | PROVIDERS: ATTEND Pathology Anatomic Pathology | DX: D34 Benign neoplasm of thyroid gland (principal); E07.89 Other specified disorders of thyroid; C85.13 Unspecified B-cell lymphoma, intra-abdominal lymph nodes ==

== ENCOUNTER 2025-03-18 09:49 | Outpatient (CLI) | payer OTHER ==
[2025-03-18 10:18] LABS: BASO % 0.3 % (0.1-1.2); EOS # 0.09 (0.04-0.54); EOS % 1.2 % (0.7-7.0); LYMPH # 1.15 (1.18-3.74); LYMPH % 15.8 % (19.3-53.1); MEAN PLATELET VOLUME 9.20 fl (9.4-12.4); MONO # 0.54 (0.24-0.82); MONO % 7.4 % (4.7-12.5); NEUT # 5.45 (1.56-6.13); NEUT % 75.0 % (34.0-71.1); RED CELL DISTRIBUTION WIDTH 11.8 % (11.6-14.4)
[2025-03-18 10:52] LABS: ALT/SGPT 18.0 U/L (12-78); AST/SGOT 16.0 U/L (15-37); BILIRUBIN TOTAL 1.18 mg/dL (0.3-1.2); BUN CREA RATIO 18.0 (7.0-25.0); CREATININE SERUM 0.77 mg/dL (0.70-1.30); GFR 106.94; GLOBULINA 2.7 G/DL (2.4-3.5); GLUCOSE FASTING 101.0 mg/dL (65-100); LDH 173.0 U/L (87-241); OSMOLALITY SERUM 280.0 MOSM/KG (275-295)
== END 2025-03-18 09:50 | disposition home or self-care (01) ==
LOC: LAB 09:49
PROVIDERS: ATTEND Internal Medicine Hematology & Oncology
DX: D50.8 Other iron deficiency anemias (principal); I10 Essential (primary) hypertension; R74.02 Elevation of levels of lactic acid dehydrogenase [LDH]; K76.89 Other specified diseases of liver; C85.13 Unspecified B-cell lymphoma, intra-abdominal lymph nodes; C85.16 Unspecified B-cell lymphoma, intrapelvic lymph nodes; C85.14 Unspecified B-cell lymphoma, lymph nodes of axilla and upper limb; C85.11 Unspecified B-cell lymphoma, lymph nodes of head, face, and neck; C85.15 Unspecified B-cell lymphoma, lymph nodes of inguinal region and lower limb; I73.9 Peripheral vascular disease, unspecified; I80.222 Phlebitis and thrombophlebitis of left popliteal vein; L97.329 Non-pressure chronic ulcer of left ankle with unspecified severity

== ENCOUNTER → 2025-05-07 12:53 | Outpatient (CLI) | payer OTHER ==
[2025-05-07 13:55] LABS: BASO % 0.4 % (0.1-1.2); EOS # 0.08 (0.04-0.54); EOS % 1.2 % (0.7-7.0); LYMPH # 1.19 (1.18-3.74); LYMPH % 17.4 % (19.3-53.1); MEAN PLATELET VOLUME 9.50 fl (9.4-12.4); MONO # 0.55 (0.24-0.82); MONO % 8.1 % (4.7-12.5); NEUT # 4.92 (1.56-6.13); NEUT % 72.0 % (34.0-71.1); RED CELL DISTRIBUTION WIDTH 12.0 % (11.6-14.4)
[2025-05-07 14:43] LABS: ALT/SGPT 24.0 U/L (12-78); AST/SGOT 16.0 U/L (15-37); BILIRUBIN TOTAL 1.06 mg/dL (0.3-1.2); BUN CREA RATIO 26.0 (7.0-25.0); CREATININE SERUM 0.76 mg/dL (0.70-1.30); GFR 108.56; GLOBULINA 2.4 G/DL (2.4-3.5); GLUCOSE FASTING 98.0 mg/dL (65-100); LDH 173.0 U/L (87-241); OSMOLALITY SERUM 284.0 MOSM/KG (275-295); T4 FREE 1.0 NG/ML (0.76-1.46); TSH 1.74 uIU/mL (0.358-3.74)
== END | disposition home or self-care (01) ==
LOC: LAB 12:53
PROVIDERS: ATTEND Internal Medicine Hematology & Oncology
DX: C85.13 Unspecified B-cell lymphoma, intra-abdominal lymph nodes (principal); C85.16 Unspecified B-cell lymphoma, intrapelvic lymph nodes; C85.12 Unspecified B-cell lymphoma, intrathoracic lymph nodes; C85.14 Unspecified B-cell lymphoma, lymph nodes of axilla and upper limb; C85.11 Unspecified B-cell lymphoma, lymph nodes of head, face, and neck; C85.15 Unspecified B-cell lymphoma, lymph nodes of inguinal region and lower limb; I73.9 Peripheral vascular disease, unspecified; I80.222 Phlebitis and thrombophlebitis of left popliteal vein; L97.329 Non-pressure chronic ulcer of left ankle with unspecified severity

== ENCOUNTER 2025-07-06 09:45 | Outpatient (CLI) | payer OTHER ==
[2025-07-06 11:17] LABS: URINE APPEARANCE Clear; URINE BILIRRUBIN Negative (NEGATIVE); URINE BLOOD Negative; URINE COLOR Yellow; URINE GLUCOSE Negative (NEGATIVE); URINE KETONE Negative (NEGATIVE); URINE LEUKOCYTE Negative; URINE NITRATE Negative; URINE PROTEIN Negative (NEGATIVE); URINE UROBILINOGEN 0.2 E.U./dl
[2025-07-06 11:20] LABS: URINE BACTERIA 1.1 uL (0.0-1933); URINE CAST 0.00 uL (0.0-1.40); URINE EPITHELIAL CELLS 0.2 uL (0.0-38.8); URINE RBC 1.6 uL (0.0-20.8); URINE WBC 0.5 uL (0.0-23.2)
[2025-07-06 11:21] LABS: BASO % 0.3 % (0.1-1.2); EOS # 0.15 (0.04-0.54); EOS % 2.4 % (0.7-7.0); LYMPH # 1.10 (1.18-3.74); LYMPH % 17.9 % (19.3-53.1); MEAN PLATELET VOLUME 9.40 fl (9.4-12.4); MONO # 0.49 (0.24-0.82); MONO % 8.0 % (4.7-12.5); NEUT # 4.39 (1.56-6.13); NEUT % 71.2 % (34.0-71.1); RED CELL DISTRIBUTION WIDTH 12.0 % (11.6-14.4)
[2025-07-06 11:36] LABS: CREATININE URINE RANDOM 52.70 MG/DL (30-125)
[2025-07-06 12:09] LABS: % SATURACION 51.4 % (20-50); ALT/SGPT 26.0 U/L (12-78); AST/SGOT 17.0 U/L (15-37); BILIRUBIN TOTAL 1.18 mg/dL (0.3-1.2); BUN CREA RATIO 21.0 (7.0-25.0); CREATININE SERUM 0.73 mg/dL (0.70-1.30); FE 175.0 ug/dl (65-175); GFR 113.73; GLOBULINA 3.0 G/DL (2.4-3.5); GLUCOSE FASTING 115.0 mg/dL (65-100); LDH 165.0 U/L (87-241); OSMOLALITY SERUM 285.0 MOSM/KG (275-295)
[2025-07-06 13:07] LABS: FOLIC ACID > 20.00 ng/ml (4.78-20); VITAMIN D3 25 HYDROXY 33.92 ng/ml (30-120)
== END 2025-07-06 10:18 | disposition home or self-care (01) ==
LOC: LAB 09:45
PROVIDERS: ATTEND Internal Medicine Hematology & Oncology
DX: C85.13 Unspecified B-cell lymphoma, intra-abdominal lymph nodes (principal); C85.16 Unspecified B-cell lymphoma, intrapelvic lymph nodes; C85.12 Unspecified B-cell lymphoma, intrathoracic lymph nodes; C85.14 Unspecified B-cell lymphoma, lymph nodes of axilla and upper limb; C85.11 Unspecified B-cell lymphoma, lymph nodes of head, face, and neck; C85.15 Unspecified B-cell lymphoma, lymph nodes of inguinal region and lower limb; I73.9 Peripheral vascular disease, unspecified; I80.222 Phlebitis and thrombophlebitis of left popliteal vein; L97.329 Non-pressure chronic ulcer of left ankle with unspecified severity; N39.0 Urinary tract infection, site not specified; R80.9 Proteinuria, unspecified; D50.8 Other iron deficiency anemias